=== PATIENT | female | born 1955 | race Caucasian/White ===

== ENCOUNTER 2019-04-15 16:15 | Emergency (ER) | payer OTHER, BC ==
[~2019-04-15] VITALS: Ht 165.1 cm; Wt 74.8 kg
== END 2019-04-15 19:06 | disposition home or self-care (01) ==
LOC: ER 16:15
DX: S52.511A Displaced fracture of right radial styloid process, initial encounter for closed fracture (principal); I10 Essential (primary) hypertension; Z90.49 Acquired absence of other specified parts of digestive tract; Z88.2 Allergy status to sulfonamides; W19.XXXA Unspecified fall, initial encounter; Y93.89 Activity, other specified; Y99.8 Other external cause status; Y92.89 Other specified places as the place of occurrence of the external cause
CPT/HCPCS: 70450; 73110